=== PATIENT | female | born 1995 | race Caucasian/White ===

== ENCOUNTER 2018-06-30 20:41 | Observation (INO) ==
[2018-06-30 21:11] LABS: Bilirubin,Urine Negative (Negative); Blood,Urine Negative (Negative); Clarity,Urine Clear (Clear); Color,Urine Yellow (Yellow); Glucose,Urine (UA) Normal (Normal); Ketones,Urine Negative (Negative); Leukocyte Esterase,Urine Negative (Negative); Nitrite,Urine Negative (Negative); PH,Urine 6.5 pH Units (5.0-8.0); Protein,Urine Negative (Neg-Trace); Specific Gravity,Urine 1.012 (1.010-1.025); Urobilinogen,Urine Normal (Normal)
[2018-06-30] MEDS ORDERED: Betamethasone Acet/SodPhos 6 MG/ML MDV IM SCH (21:15)
[2018-06-30 21:21] LABS: Amphetamine Screen,Urine Negative ng/mL (Cutoff=1000); Barbiturate Screen,Urine Negative ng/mL (Cutoff=200); Benzodiazepines Screen,Urine Negative ng/mL (Cutoff=200); Cannabinoid Screen,Urine Negative ng/mL (Cutoff = 50); Cocaine Screen,Urine Negative ng/mL (Cutoff= 300); Opiate Screen,Urine Negative ng/mL (Cutoff=300); Phencyclidine Screen,Urine Negative ng/mL (Cutoff=25)
[2018-06-30 22:05] LABS: Basophils % 0.4 %; Eosinophils # 0.2 K/mcL (0.0-0.6); Eosinophils % 1.9 %; Hematocrit 39.2 % (35.3-44.9); Hemoglobin 13.8 g/dL (11.5-15.4); Immature Granulocytes % 1.2 % (0-4); Lymphocytes # 1.5 K/mcL (0.6-4.6); Lymphocytes % 13.7 %; Mean Corpuscular HGB Conc 35.2 g/dL (31.6-35.5); Mean Corpuscular Hemoglobin 32.8 pg (28.0-33.3); Mean Corpuscular Volume 93.1 fL (83.0-100.0); Mean Platelet Volume 9.8 fL (9.4-12.4); Monocytes # 0.9 K/mcL (0.0-1.3); Monocytes % 8.2 %; Neutrophils # 8.3 K/mcL (1.6-8.9); Platelet Count 188 K/mcL (140-400); Red Blood Count 4.21 M/mcL (3.82-4.97); Red Cell Distribution Width 13.2 % (11.5-14.5); Segmented Neutrophils % 74.6 %
[2018-06-30] MEDS ORDERED: Ringers Solution, Lactated 1,000 ML IVC ONE (22:43)
[2018-06-30] MEDS ORDERED: Ringers Solution, Lactated 1,000 ML ONE (22:43)
[2018-06-30] MEDS ORDERED: Ringers Solution, Lactated 1,000 ML IVC SCH (22:45)
--- NOTE | 2018-07-01 00:09 | OB/GYN Progress Note ---
Date of Encounter: 07/01/18 Time of Encounter: 00:05 - Assessment and Plan (1) 26 weeks gestation of Current Visit: Yes Status: Acute (2) uterine contractions in second trimester, antepartum Current Visit: Yes Status: Acute Discuss plan of care with Dr. Finney Initiated betamethasone steroid course CBC checked UA negative for UTI 1 L LR bolus followed by 125 LR per hour Slight change in cervical effacement over 3 hours, we will continue to monitor overnight, any further cervical change will transfer to [facility] for evaluation Subjective - Subjective Interval history: 26+3 weeks gestation presents to triage with complaints of cramping and pelvic pressure area patient states she had a couple hours of cramping yesterday but it spontaneously resolved, and this evening about 6-7 she started to have cramping again with pelvic pressure. Reports good movement, denies vaginal bleeding or leaking of fluid. Patient remains on vaginal progesterone, has been noted to have shortening cervix during this last ultrasound on 06/25 shows 25 mm cervix with no funneling. Antepartum ROS: movement normal, contractions, no loss of fluid, no vaginal bleeding Objective - Vital Signs Vital Signs: Intake and Output 06/30/18 06/30/18 07/01/18 15:59 23:59 07:59 Other: Weight 56 kg - Exam FHR: auscultation normal FHR comments: Baseline 135 Abdomen: Present: soft, gravid Cervical dilation: 50/-2
[2018-07-01] MEDS ORDERED: PROGESTERONE 200 MG VG SCH (11:15)
[2018-07-01] MEDS ORDERED: Betamethasone Acet/SodPhos 6 MG/ML MDV IM SCH (11:45)
--- NOTE | 2018-07-01 11:48 | Discharge Summary ---
Date of Encounter: 07/01/18 Time of Encounter: 11:49 - Discharge Diagnosis (1) 26 weeks gestation of Priority: Secondary Status: Acute (2) uterine contractions in second trimester, antepartum Priority: Primary Status: Acute Comments: Pt reports she is feeling much better. She states she is no longer feeling contractions. Plan for repeat celestone now and then discharge home. Precautions given. Plan per Dr. Stratton. - Discharge Medications Prescriptions: Progesterone,Micronized [Progesterone] 200 mg VG DAILY #2 capsule Home Medications: Vit/Iron Fumarate/FA [ Tablet] 1 each PO DAILY #30 tablet 01/24 [Rx] Progesterone,Micronized [Endometrin] 200 mg VG DAILY 06/30/18 [History] Progesterone,Micronized [Progesterone] 200 mg VG DAILY #2 capsule 07/01/18 [Rx] Allergies/Adverse Reactions: 3 Allergy/AdvReac Type Severity Reaction Status Date / Time Amoxicillin [From Augmentin] Allergy Rash Verified 06/30/18 20:55 clavulanic acid Allergy Rash Verified 06/30/18 20:55 [From Augmentin] metronidazole [From Flagyl] Allergy Rash Verified 06/30/18 20:55 Data Procedures and tests throughout hospitalization: Laboratory Tests 06/30/18 06/30/18 06/30/18 21:04 21:04 21:29 WBC 11.1 RBC 4.21 Hgb 13.8 Hct 39.2 MCV 93.1 MCH 32.8 MCHC 35.2 RDW 13.2 Plt Count 188 MPV 9.8 Immature Gran % 1.2 Seg Neutrophils % 74.6 Lymphocytes % 13.7 Monocytes % 8.2 Eosinophils % 1.9 Basophils % 0.4 Neutrophils # 8.3 Lymphocytes # 1.5 Monocytes # 0.9 Eosinophils # 0.2 Basophils # 0.0 Urine Color Yellow Urine Clarity Clear Urine pH 6.5 Ur Specific [place] 1.012 Urine Protein Negative Urine Glucose (UA) Normal Urine Ketones Negative Urine Blood Negative Urine Nitrite Negative Urine Bilirubin Negative Urine Urobilinogen Normal Ur Leukocyte Esterase Negative Ur Culture Indicated? NO Urine Opiates Screen Negative Ur Barbiturates Screen Negative Ur Phencyclidine Scrn Negative Ur Amphetamines Screen Negative U Benzodiazepines Scrn Negative Urine Cocaine Screen Negative U Marijuana (THC) Screen Negative Ur Drug Screen Interp See Below Labs on day of discharge: Labs from last 24 hours 0906/30/18 06/30/18 21:29 21:04 21:04 WBC 11.1 RBC 4.21 Hgb 13.8 Hct 39.2 MCV 93.1 MCH 32.8 MCHC 35.2 RDW 13.2 Plt Count 188 MPV 9.8 Immature Gran % 1.2 Seg Neutrophils % 74.6 Lymphocytes % 13.7 Monocytes % 8.2 Eosinophils % 1.9 Basophils % 0.4 Neutrophils # 8.3 Lymphocytes # 1.5 Monocytes # 0.9 Eosinophils # 0.2 Basophils # 0.0 Urine Color Yellow Urine Clarity Clear Urine pH 6.5 Ur Specific [place] 1.012 Urine Protein Negative Urine Glucose (UA) Normal Urine Ketones Negative Urine Blood Negative Urine Nitrite Negative Urine Bilirubin Negative Urine Urobilinogen Normal Ur Leukocyte Esterase Negative Ur Culture Indicated? NO Urine Opiates Screen Negative Ur Barbiturates Screen Negative Ur Phencyclidine Scrn Negative Ur Amphetamines Screen Negative U Benzodiazepines Scrn Negative Urine Cocaine Screen Negative U Marijuana (THC) Screen Negative Ur Drug Screen Interp See Below Date of admission: 06/30/18 20:41 Primary care physician: PCP MAIKEL Discharging clinician: Anna Jones Anticipated date of discharge: 07/01/18 - Patient Status Disposition: Home, Self-Care Condition: Good Functional capacity at discharge: independent ambulation Overall status at discharge: patient is progressing back to baseline - Discharge Instructions Follow Up With: MAIKEL,PCP [Primary Care Provider] - Anna Jones CNM [Non-Partnered Physician] - - Diet and Activity Activity: other (light activity) Diet: regular diet 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
== END 2018-07-01 12:56 | disposition home or self-care (01) ==
LOC: 1NENULAB
PROVIDERS: ADMIT Advanced Practice Midwife; ATTEND Advanced Practice Midwife

== ENCOUNTER → 2018-07-01 22:23 | Observation (INO) ==
[2018-07-01 21:24] LABS: Candida DNA Not Detected (Not Detect); Gardnerella DNA DETECTED (Not Detect); Trichomonas DNA Not Detected (Not Detect)
--- NOTE | 2018-07-07 17:58 | OB/GYN Progress Note ---
Date of Encounter: 07/01/18 Time of Encounter: 22:20 - Assessment and Plan (1) Bacterial vaginosis Status: Acute Rx given. No SVE change. Discharge home with precautions. (2) 26 weeks gestation of Status: Acute (3) uterine contractions in second trimester, antepartum Status: Acute No cervical change. Discharge home with precautions. Subjective - Subjective Interval history: Pt presenting at 26 weeks with c/o return of cramping and pressure after being discharged home this am. SHe received celestone x2 previously. She reports that the pain resumed this evening. No LOF or VB. Good FM. Antepartum ROS: movement normal, contractions, no loss of fluid, no vaginal bleeding Objective - Exam FHR: category 1 FHR comments: FHT reassuring for GA. Tracing reviewed by Dr. Stratton. Auscultation: bilateral: normal Abdomen: Present: soft, gravid. Absent: tenderness Uterus: Absent: tenderness Cervical dilation: no change from this am Comments: SSE with thick yellow discharge in vault. No bleeding or pooling. Unable to collect FFN due to previous vaginal exam in last 24 hours. - Labs Labs: Abnormal lab results [place] DNA Probe DETECTED (Not Detect) A 07/01/18 20:00
== END | disposition home or self-care (01) ==
LOC: 1NENULAB
PROVIDERS: ADMIT Registered Nurse; ATTEND Registered Nurse

== ENCOUNTER → 2018-07-04 19:11 | Observation (INO) ==
[2018-07-04 16:13] LABS: Bilirubin,Urine Negative (Negative); Blood,Urine Negative (Negative); Clarity,Urine Clear (Clear); Color,Urine Yellow (Yellow); Glucose,Urine (UA) Normal (Normal); Ketones,Urine Negative (Negative); Leukocyte Esterase,Urine Negative (Negative); Nitrite,Urine Negative (Negative); Protein,Urine Negative (Neg-Trace); Specific Gravity,Urine 1.013 (1.010-1.025); Urobilinogen,Urine Normal (Normal)
[2018-07-04 16:23] LABS: Amphetamine Screen,Urine Negative ng/mL (Cutoff=1000); Barbiturate Screen,Urine Negative ng/mL (Cutoff=200); Benzodiazepines Screen,Urine Negative ng/mL (Cutoff=200); Cannabinoid Screen,Urine Negative ng/mL (Cutoff = 50); Cocaine Screen,Urine Negative ng/mL (Cutoff= 300); Opiate Screen,Urine Negative ng/mL (Cutoff=300); Phencyclidine Screen,Urine Negative ng/mL (Cutoff=25)
--- NOTE | 2018-07-04 16:28 | OB/GYN Progress Note ---
Date of Encounter: 07/04/18 Time of Encounter: 16:22 - Assessment and Plan (1) 27 weeks gestation of Current Visit: Yes Status: Acute admitted for observation encourage PO hydration EFM and TOCO monitoring Dr. Valadez notified . (2) uterine contractions in second trimester, antepartum Current Visit: No Status: Acute SVE: Closed/80%/-3, no blood noted on glove after exam. Consider tocolytics if uterine irritability continues despite PO hydration. Subjective - Subjective Principal diagnosis: vaginal bleeding Interval history: Patient is a 22 y/o at 27w0d presents to labor and with complaints of vaginal spotting after using the restroom. Patient has history of shorten cervix this and in on progestrone suppositories due to history of 36 week delivery. Patient denies any intercourse or regular contractions. Patient does report she is currently being treated for BV with Clindamycin due to allergy to Flagyl. Patient reports +FM. Patient's last cervical length was 25mm without funneling and sludge. Patient is scheduled for a follow up cervical length on 07/10/2018. Antepartum ROS: vaginal bleeding (per hpi), movement normal, contractions , no loss of fluid Objective - Vital Signs Vital Signs: Intake and Output 07/04/18 07/04/18 07/04/18 07:59 15:59 23:59 Other: Weight 54.975 kg Patient Weight 07/04/18 23:59 Weight 54.975 kg - Exam FHR: auscultation normal FHR comments: 145 bpm moderate variability appropriate for gestational age. Uterine irritability noted. Abdomen: Present: normal appearance, soft, gravid Uterus: Present: normal Cervical dilation: closed Cervix effacement: 80% station: -3 Comments: speculum exam: NO active bleeding noted. Moderate amount of white discharge noted. Cervix appears to be closed visually but is red and inflamed in appearance.
[~2018-07-04 19:11] MED LIST: Terbutaline 1 MG/ML VIAL SQ ONE
== END | disposition home or self-care (01) ==
LOC: 1NENULAB
PROVIDERS: ADMIT Student in an Organized Health Care Education/Training Program; ATTEND Student in an Organized Health Care Education/Training Program

== ENCOUNTER → 2018-08-01 15:00 | Observation (INO) ==
[2018-08-01 14:10] LABS: Bilirubin,Urine Negative (Negative); Blood,Urine Negative (Negative); Clarity,Urine Clear (Clear); Color,Urine Yellow (Yellow); Glucose,Urine (UA) Normal (Normal); Ketones,Urine Negative (Negative); Leukocyte Esterase,Urine Negative (Negative); Nitrite,Urine Negative (Negative); PH,Urine 7.5 pH Units (5.0-8.0); Protein,Urine Negative (Neg-Trace); Specific Gravity,Urine 1.011 (1.010-1.025); Urobilinogen,Urine Normal (Normal)
[2018-08-01 14:27] LABS: Amphetamine Screen,Urine Negative ng/mL (Cutoff=1000); Barbiturate Screen,Urine Negative ng/mL (Cutoff=200); Benzodiazepines Screen,Urine Negative ng/mL (Cutoff=200); Cannabinoid Screen,Urine Negative ng/mL (Cutoff = 50); Cocaine Screen,Urine Negative ng/mL (Cutoff= 300); Opiate Screen,Urine Negative ng/mL (Cutoff=300); Phencyclidine Screen,Urine Negative ng/mL (Cutoff=25)
--- NOTE | 2018-08-01 14:51 | Discharge Summary ---
Date of Encounter: 08/01/18 Time of Encounter: 14:53 - Discharge Diagnosis (1) 31 weeks gestation of Priority: Secondary Status: Acute Comments: Admitted for OBS for c/o possible SROM and contractions. (2) NST (non-stress test) reactive Priority: Secondary Status: Acute Comments: FHR 135 bpm, moderate variability, +15x15 accels, no decels. (3) Vaginal discharge during in third trimester Priority: Secondary Status: Acute Comments: SSE revealed normal vaginal discharge. Negative nitrazine, negative FERN. - Discharge Medications Home Medications: Vit/Iron Fumarate/FA [ Tablet] 1 each PO DAILY #30 tablet 01/24 [Rx] Progesterone,Micronized [Progesterone] 200 mg VG DAILY #2 capsule 07/01/18 [Rx] raNITIdine HCl [Zantac] 150 mg PO DAILY 07/01/18 [History] Allergies/Adverse Reactions: 3 Allergy/AdvReac Type Severity Reaction Status Date / Time Amoxicillin [From Augmentin] Allergy Rash Verified 08/01/18 13:18 clavulanic acid Allergy Rash Verified 08/01/18 13:18 [From Augmentin] metronidazole [From Flagyl] Allergy Rash Verified 08/01/18 13:18 Data Procedures and tests throughout hospitalization: Laboratory Tests 08/01/18 08/01/18 13:51 13:51 Ur Specimen Adequacy See below A Urine Color Yellow Urine Clarity Clear Urine pH 7.5 Ur Specific [place] 1.011 Urine Protein Negative Urine Glucose (UA) Normal Urine Ketones Negative Urine Blood Negative Urine Nitrite Negative Urine Bilirubin Negative Urine Urobilinogen Normal Ur Leukocyte Esterase Negative Ur Culture Indicated? NO Urine Opiates Screen Negative Ur Barbiturates Screen Negative Ur Phencyclidine Scrn Negative Ur Amphetamines Screen Negative U Benzodiazepines Scrn Negative Urine Cocaine Screen Negative U Marijuana (THC) Screen Negative Ur Drug Screen Interp See Below Labs on day of discharge: Labs from last 24 hours 08/01/18 08/01/18 13:51 13:51 Ur Specimen Adequacy See below A Urine Color Yellow Urine Clarity Clear Urine pH 7.5 Ur Specific [place] 1.011 Urine Protein Negative Urine Glucose (UA) Normal Urine Ketones Negative Urine Blood Negative Urine Nitrite Negative Urine Bilirubin Negative Urine Urobilinogen Normal Ur Leukocyte Esterase Negative Ur Culture Indicated? NO Urine Opiates Screen Negative Ur Barbiturates Screen Negative Ur Phencyclidine Scrn Negative Ur Amphetamines Screen Negative U Benzodiazepines Scrn Negative Urine Cocaine Screen Negative U Marijuana (THC) Screen Negative Ur Drug Screen Interp See Below Date of admission: 08/01/18 12:55 Discharging clinician: Shi Sharpe Anticipated date of discharge: 08/01/18 - Patient Status Disposition: Home, Self-Care Condition: Good Functional capacity at discharge: independent ambulation Overall status at discharge: patient is back to baseline - Discharge Instructions Follow Up With: Elle Nix CNM [Non-Partnered Physician] - - Diet and Activity Activity: resume usual activities as tolerated Diet: regular diet Hospital Course TELEVISION SERVICE ENGINEER Hospital course: Lori is a at 31 weeks who arrived with complaints of possible SROM. She noticed a half-dollar sized spot of fluid today as well as some abdominal cramping as well as some lower back pain. Lori is on vaginal progesterone for history of at 36 weeks and last used a suppository at 1700 last evening. SSE reveals normal white vaginal discharge, negative nitrazine and negative FERN. Cervix visualized and is beefy red, appears closed. UA WNL, rare uterine contractions with irritability in between. Patient instructed to increase fluid intake, continue vaginal progesterone and use heat or ice pack for lower back pain as well as consult a chiropractor. Patient agrees with this plan and verbalized understanding. Time Attestation: Total time spent providing and/or coordinating discharge services: Time Spent: Less than 30 minutes Exam - Constitutional General appearance IM: A&O X 3, pleasant, no acute distress - Respiratory Respiratory exam: Present: CTAB - Cardiovascular Cardiovascular exam IM: Present: RRR, +S1, +S2 - GI/Abdominal GI/Abdominal exam IM: normal bowel sounds, soft - Rectal Rectal exam: deferred - Extremities Exam Extremities exam IM: Present: full ROM, normal capillary refill, normal inspection - Neurological Exam Neurological exam: alert, normal gait, oriented X3 - VTE Reasons for not Prescribing Prophylaxis: Treatment not Indicated - Low risk for VTE
== END | disposition home or self-care (01) ==
LOC: 1NENULAB
PROVIDERS: ADMIT Advanced Practice Midwife; ATTEND Advanced Practice Midwife

== ENCOUNTER → 2018-08-14 20:20 | Observation (INO) ==
[2018-08-14 19:56] LABS: Amphetamine Screen,Urine Negative ng/mL (Cutoff=1000); Barbiturate Screen,Urine Negative ng/mL (Cutoff=200); Benzodiazepines Screen,Urine Negative ng/mL (Cutoff=200); Cannabinoid Screen,Urine Negative ng/mL (Cutoff = 50); Cocaine Screen,Urine Negative ng/mL (Cutoff= 300); Opiate Screen,Urine Negative ng/mL (Cutoff=300); Phencyclidine Screen,Urine Negative ng/mL (Cutoff=25)
--- NOTE | 2018-08-14 20:06 | OB/GYN History & Physical ---
Date of Encounter: 08/14/18 Time of Encounter: 20:00 Assessment and Plan (1) Vaginal bleeding during Current visit: Yes Status: Acute 22yo at 32+0wk who presents with spotting 1. Concern for vaginal spotting - SSE performed: no blood appreciated in vault, +odorless discharge, +curd-like discharge - SVE performed: /, posterior, non-laboring - no contraction(s), leaking of fluid 2. Vaginal carl - appreciated active yeast on exam - diflucan ordered and sent home with patient 3. FWB - RNST for GA - S = D - good FM Dispo: NO vaginal bleeding, reactive NST, no contraction(S). Rx to home with diflucan. Given PTL precaution(s) MD JONAH History of Present Illness Chief complaint: Vaginal bleeding HPI: Ms. Valencia is a 22 year old female at 32wks GA presents with spotting at home, concern for well being. Patient has UTD PNC with [facility]. Hx of one prior PT at 36wks, currently taking progesterone for PTL prevention. Otherwise she has had an uncomplicated . Her last cervical exam, the patient was found to be 1cm dilated. Today, the patient reports having a very small amount of bright red blood along her pantyliner. Denies vaginal hemorrhaging. Not heavy in comparison to vaginal period. SHe does report having minimal brown discharge yesterday but this has happened earlier in and she was told not to be concerned unless she has bright red blood. Otherwise, she has NO obstetrical complaints. No leaking of fluid or concern for rupture. Denies active and regular contraction(S). Denies vaginal itching and discharge. Reports good FM, performs FKC daily. Past Med Surg Social Fam HX - Past Medical History Medical history: no medical history Additional medical history: asthma when younger Psychiatric history: anxiety, depression - Past Surgical History Surgical History: no surgical history Additional surgical history: t&a. tubes in ears - Social History Smoking Status: Current every day smoker Packs per day: 1 Smokeless Tobacco Status: No Alcohol use: none Drug use: none - Family History Paternal Grandfather Hx Family Cardiac Disorders: Yes (HTN) Mother Living Status: Still Living Hx Family Cardiac Disorders: Yes (mi) Hx Family Respiratory Disorders: Yes (copd) Hx Family Cancer: No Hx Family GI Disorders: No Hx Family Genitourinary Disorders: No Hx Family Endocrine Disorder: No Hx Family Musculoskeletal Disorders: No Hx Family Neuromuscular Disorders: No Hx Family Neurologic Disorders: No Hx Family HEENT Disorders: No Hx Family Autoimmune Disorders: No Hx Family Reproductive Disorders: No Hx Family Psychosocial Disorders: No Hx Family Medical Disorders: No Obstetrical History - Pregnancies : 2 Para: 1 Livin Medications and Allergies Vit/Iron Fumarate/FA [ Tablet] 1 each PO DAILY #30 tablet 01/24/18 [Rx] Progesterone,Micronized [Progesterone] 200 mg VG DAILY #2 capsule 07/01/18 [Rx] raNITIdine HCl [Zantac] 150 mg PO DAILY 07/01/18 [History] Allergy/AdvReac Type Severity Reaction Status Date / Time Amoxicillin [From Augmentin] Allergy Rash Verified 08/01/18 13:18 clavulanic acid Allergy Rash Verified 08/01/18 13:18 [From Augmentin] metronidazole [From Flagyl] Allergy Rash Verified 08/01/18 13:18 Exam - Vital Signs Vital signs: normotensive VSS, HDS non-tachycardic Results All other labs normal. - VTE Reasons for not Prescribing Prophylaxis: Treatment not Indicated - Low risk for VTE
[2018-08-14 20:23] LABS: Bilirubin,Urine Negative (Negative); Blood,Urine Negative (Negative); Clarity,Urine Clear (Clear); Color,Urine Yellow (Yellow); Glucose,Urine (UA) Normal (Normal); Ketones,Urine Negative (Negative); Leukocyte Esterase,Urine Negative (Negative); Nitrite,Urine Negative (Negative); PH,Urine 6.5 pH Units (5.0-8.0); Protein,Urine Negative (Neg-Trace); Urobilinogen,Urine Normal (Normal)
== END | disposition home or self-care (01) ==
LOC: 1NENULAB
PROVIDERS: ADMIT Advanced Practice Midwife; ATTEND Advanced Practice Midwife

== ENCOUNTER → 2018-08-15 17:36 | Observation (INO) ==
[2018-08-15 15:31] LABS: Basophils % 0.2 %; Eosinophils % 0.3 %; Hematocrit 37.5 % (35.3-44.9); Hemoglobin 12.9 g/dL (11.5-15.4); Immature Granulocytes % 0.4 % (0-4); Lymphocytes # 1.7 K/mcL (0.6-4.6); Lymphocytes % 10.8 %; Mean Corpuscular HGB Conc 34.4 g/dL (31.6-35.5); Mean Corpuscular Hemoglobin 31.8 pg (28.0-33.3); Mean Corpuscular Volume 92.4 fL (83.0-100.0); Mean Platelet Volume 9.7 fL (9.4-12.4); Monocytes # 1.1 K/mcL (0.0-1.3); Monocytes % 6.8 %; Neutrophils # 12.8 K/mcL (1.6-8.9); Platelet Count 155 K/mcL (140-400); Red Blood Count 4.06 M/mcL (3.82-4.97); Red Cell Distribution Width 12.7 % (11.5-14.5); Segmented Neutrophils % 81.5 %
--- NOTE | 2018-08-15 15:31 | OB/GYN History & Physical ---
Date of Encounter: 08/15/18 Time of Encounter: 15:19 History of Present Illness HPI: Ms. Valencia is a 22 year old female Past Med Surg Social Fam HX - Past Medical History Medical history: no medical history Additional medical history: asthma when younger Psychiatric history: anxiety, depression - Past Surgical History Surgical History: non-contributory Additional surgical history: t&a. tubes in ears - Social History Smoking Status: Current every day smoker Packs per day: .5 Smokeless Tobacco Status: No Alcohol use: none Drug use: none - Family History Paternal Grandfather Hx Family Cardiac Disorders: Yes (HTN) Mother Living Status: Still Living Hx Family Cardiac Disorders: Yes (mi) Hx Family Respiratory Disorders: Yes (copd) Hx Family Cancer: No Hx Family GI Disorders: No Hx Family Endocrine Disorder: No Hx Family Neuromuscular Disorders: No Hx Family Neurologic Disorders: No Hx Family HEENT Disorders: No Hx Family Autoimmune Disorders: No Obstetrical History - Pregnancies : 2 Medications and Allergies Vit/Iron Fumarate/FA [ Tablet] 1 each PO DAILY #30 tablet 01/24/18 [Rx] Progesterone,Micronized [Progesterone] 200 mg VG DAILY #2 capsule 07/01/18 [Rx] raNITIdine HCl [Zantac] 150 mg PO DAILY 07/01/18 [History] Fluconazole [Diflucan] 150 mg PO DAILY #2 tablet 08/14/18 [Rx] Allergy/AdvReac Type Severity Reaction Status Date / Time Amoxicillin [From Augmentin] Allergy Rash Verified 08/01/18 13:18 clavulanic acid Allergy Rash Verified 08/01/18 13:18 [From Augmentin] metronidazole [From Flagyl] Allergy Rash Verified 08/01/18 13:18 Results All other labs normal. - VTE Reasons for not Prescribing Prophylaxis: Treatment not Indicated - Low risk for VTE
[2018-08-15 15:39] LABS: Amphetamine Screen,Urine Negative ng/mL (Cutoff=1000); Barbiturate Screen,Urine Negative ng/mL (Cutoff=200); Benzodiazepines Screen,Urine Negative ng/mL (Cutoff=200); Cannabinoid Screen,Urine Negative ng/mL (Cutoff = 50); Cocaine Screen,Urine Negative ng/mL (Cutoff= 300); Opiate Screen,Urine Negative ng/mL (Cutoff=300); Phencyclidine Screen,Urine Negative ng/mL (Cutoff=25)
--- NOTE | 2018-08-15 16:08 | OB/GYN History & Physical ---
Date of Encounter: 08/15/18 Time of Encounter: 16:06 Assessment and Plan (1) 33 weeks gestation of Current visit: Yes Status: Acute Admit for evaluation of labor. Plan of care determined by on-call physician Dr. Valadez Begin GBS prophylaxis. Repeat Celestone. IV hydration with lactated Ringer's. Consider transfer to tertiary care center if patient is stable (2) uterine contractions in third trimester, antepartum Current visit: Yes Status: Acute Continuous monitoring. Cervical exam Collect GC and Chlamydia cultures, GBS culture Plan of care determined by on-call physician Dr. Valadez Tocolysis with terbutaline Patient is currently on vaginal progesterone. Last dose was yesterday evening. Consider transfer to a tertiary care center (3) Vaginal bleeding during Current visit: No Status: Acute Sterile speculum exam performed to evaluate vaginal bleeding. Scant amount of pink discharge noted at cervical os. History of Present Illness Chief complaint: contractions and spotting. HPI: Ms. Valencia is a 22 year old female at 30 weeks and 0 days who arrives to the unit with complaints of vaginal bleeding that started this morning. When he was here yesterday with the same complaint was found to be 1 cm dilated. Was treated for vaginal yeast infection. Today she arrives with complaint of vaginal spotting. Sterile speculum exam reveals scant amount of pink tinged mucus. Cervical exam today 3 cm 50% 0 station. Patient in obvious discomfort with contractions. She reports positive movement and denies leakage of fluid. Her has been complicated by a previous delivery at 36 weeks. She is currently on vaginal progesterone and her last dose was yesterday evening. When he is sam every 3-4 minutes. On-call physician notified for consultation of labor. Physician is aware of need to ultimately take over care of this patient due to labor less than 34 weeks. Under direction of on-call physician the following orders will be initiated: IV hydration with lactated Ringer's. GBS prophylaxis with Ancef due to patient allergy to amoxicillin. Repeat dose of Celestone IM. Collection GBS culture, GC and Chlamydia, and urine culture. Tocolysis with terbutaline with repeat doses as needed. Consider transfer to tertiary care center. Past Med Surg Social Fam HX - Past Medical History Source: patient Medical history: no medical history Additional medical history: asthma when younger Psychiatric history: anxiety, depression - Past Surgical History Surgical History: non-contributory Additional surgical history: t&a. tubes in ears - Social History Smoking Status: Current every day smoker Packs per day: .5 Smokeless Tobacco Status: No Alcohol use: none Drug use: none Current living situation: Home - Independent Activity Level: Independent ambulation Recent Out of Country Travel Within the Last 8 Weeks: No Exposure or Possible Exposure to Illness During Travel: No - Family History Paternal Grandfather Hx Family Cardiac Disorders: Yes (HTN) Mother Living Status: Still Living Hx Family Cardiac Disorders: Yes (mi) Hx Family Respiratory Disorders: Yes (copd) Hx Family Cancer: No Hx Family GI Disorders: No Hx Family Endocrine Disorder: No Hx Family Neuromuscular Disorders: No Hx Family Neurologic Disorders: No Hx Family HEENT Disorders: No Hx Family Autoimmune Disorders: No Obstetrical History - Pregnancies : 2 Para: 1 Term: 0 : 1 (36 weeks) Ab's: 0 Livin - History/Complications History/Complications: Previous delivery at 36 weeks Medications and Allergies Vit/Iron Fumarate/FA [ Tablet] 1 each PO DAILY #30 tablet 01/24/18 [Rx] Progesterone,Micronized [Progesterone] 200 mg VG DAILY #2 capsule 07/01/18 [Rx] raNITIdine HCl [Zantac] 150 mg PO DAILY 07/01/18 [History] Fluconazole [Diflucan] 150 mg PO DAILY #2 tablet 08/14/18 [Rx] Allergy/AdvReac Type Severity Reaction Status Date / Time Amoxicillin [From Augmentin] Allergy Rash Verified 08/01/18 13:18 clavulanic acid Allergy Rash Verified 08/01/18 13:18 [From Augmentin] metronidazole [From Flagyl] Allergy Rash Verified 08/01/18 13:18 Review of System OB - Constitutional Constitutional ROS IM: as per HPI Exam - Constitutional Constitutional: well developed, well nourished, mild distress - Neck Neck exam: full ROM, normal inspection - Lungs Respiratory exam: CTAB - Cardiovascular Cardiovascular exam: RRR, +S1, +S2 - Breasts Breast: bilateral: normal - Abdomen Abdomen: Present: bowel sounds normal, gravid, non tender - Extremities Extremities exam: full ROM, normal capillary refill, normal inspection - Vulva Vulva: bilateral: normal - Vagina Vagina: Present: normal moisture, discharge (thick white discharge, streaks of blood) - Cervix Cervix: Present: friable Dilation: 3 (3-4 cm) Effacement: 50 Station: 0 - Uterus Uterus exam: Present: normal size - Anus/Rectum Anus/Rectum: Present: normal perianal skin Results Result Diagrams: 08/15/18 15:10 Abnormal lab results WBC 15.7 K/mcL (4.3-11.1) H 08/15/18 15:10 Neutrophils # 12.8 K/mcL (1.6-8.9) H 08/15/18 15:10 All other labs normal. - VTE Reasons for not Prescribing Prophylaxis: Treatment not Indicated - Low risk for VTE
--- NOTE | 2018-08-15 17:25 | OB Labor Progress Note ---
Date of Encounter: 08/15/18 Time of Encounter: 17:00 Labor Progress Note - Subjective Subjective: Patient still reports pain with contractions. - Cervix Cervix: Cervical exam is now 4-5 cm 60% -1-0 station per CNM exam area - Heart Tones Heart Tones: heart rate 160 bpm, moderate variability, +15 x 15 accelerations, no decelerations. - [place]: Contractions every 4-5 minutes. - Interventions Interventions: Cervical exam with noted change. Patient still uncomfortable with contractions despite use of [place] for tocolysis - Plan Plan: After speaking with Dr. Valadez he advises to proceed with transport to tertiary care center due to cervical change and labor. Transport team will be notified for transfer of care to [facility].
[~2018-08-15 17:36] MED LIST changes: +*HR* Nalbuphine 10 MG/ML AMPUL IVP PRN; +Betamethasone Acet/SodPhos 6 MG/ML MDV IM SCH; +CeFAZolin Premix DUPLEX 2,000 MG/50 ML BAG IVPB ONE; +Famotidine 20 MG/2 ML VIAL IVP PRN; +Metoclopramide 10 MG/2 ML VIAL IVP PRN; +NIFEdipine 10 MG CAPSULE PO STA; +Naloxone 0.4 MG/ML INJ IVP PRN; +Ondansetron 4 MG/2 ML VIAL IVP PRN; +Ringers Solution, Lactated 1,000 ML ONE; +ceFAZolin 1,000 MG in Water for inj. (sterile) 20 ML 10 ML IVP SCH
== END | disposition critical access hospital (66) ==
LOC: 1NENULAB
PROVIDERS: ADMIT Advanced Practice Midwife; ATTEND Advanced Practice Midwife